=== PATIENT | female | born 1965 ===

== ENCOUNTER → 2021-03-10 | Outpatient (CLI) | payer BC ==
--- NOTE | 2021-03-10 13:22 | REP ---
INDICATION: CONTUSION OF RIGHT FRONT WALL OF THORAX. COMPARISON: None. TECHNIQUE: Five views including PA chest. FINDINGS: PA chest radiograph shows no evidence of pneumothorax or hydrothorax. Heart is not enlarged. There are degenerative changes in the thoracic spine. The pleural angles are sharp. There is some pleuroparenchymal reaction in the right base. This may be chronic scarring or platelike atelectasis. Multiple views of the right rib cage show no evidence of rib fracture or bony destructive lesion. IMPRESSION: Discoid atelectasis versus pleuroparenchymal fibrosis right base. No rib fracture seen. <Electronically signed by Kennedy Man > 03/10/21 [id number]
== END ==
LOC: M WUC 11:40
PROVIDERS: ATTEND Physician Assistant
DX: S20.211A Contusion of right front wall of thorax, initial encounter (principal); J98.4 Other disorders of lung